=== PATIENT | female | born 1945 | race Caucasian/White ===

== ENCOUNTER → 2018-04-17 | Outpatient (CLI) | payer OTHER, BC ==
[~2018-04-17] MED LIST: ABL/5 PO; CALCTAB5 PO; CHOL100010 PO; CITA40TA12 PO; DLDI IV; LDDP5 TD; LVNIS40 SQ; MLXESC PO; MOMLX PO; MRLP17X PO; NPR375 PO; NRN300 PO; OMEG10007 PO; PRT40 PO; RXC5 PO; TRAZ100T29 PO; TYL325X PO; VLM2 PO; VLM5 PO; VLTG EXT; ZFRI4 IV; ZNF4 PO
--- NOTE | 2018-04-18 15:18 | MAMMOGRAPHY REPORT ---
BILATERAL DIGITAL SCREENING MAMMOGRAM TOMOSYNTHESIS WITH CAD: 04/17/2018 CLINICAL HISTORY: Routine screening. Patient has no complaints. TECHNIQUE: Breast tomosynthesis in addition to standard 2D mammography was performed. Current study was also evaluated with a Computer Aided Detection (CAD) system. COMPARISON: Comparison is made to exams dated: 03/28/2017 mammogram, 03/27/2016 mammogram, 10/20/2014 ma mmogram, 09/01/2013 mammogram, 09/02/2012 mammogram, and 08/26/2012 mammogram - [facility] nter. BREAST COMPOSITION: There are scattered areas of fibroglandular density in both breasts. FINDINGS: No suspicious masses, calcifications, or areas of architectural distortion are noted in ei ther breast. There has been no significant interval change compared to prior exams. IMPRESSION: ACR BI-RADS CATEGORY 1: NEGATIVE There is no mammographic evidence of malignancy. A 1 year screening mammogram is recommended. The pa tient will receive written notification of the results. Approximately 10% of breast cancers are not detected with mammography. A negative mammographic report should not delay biopsy if a clinically suggestive mass is present. Rebekah Preciado M.D. ah/:04/17/2018 14:56:06 Correction Lieutenant: Kelly GOMEZ(Dandre)(Janae), [facility] letter sent: Normal 1/2 BI-RADS Code: ACR BI-RADS Category 1: Negative
== END | disposition home or self-care (01) ==
LOC: C.MAMM 14:10
PROVIDERS: ATTEND Family Medicine
DX: Z12.31 Encounter for screening mammogram for malignant neoplasm of breast (principal)